=== PATIENT | female | born 2000 | race Caucasian/White ===

== ENCOUNTER 2020-09-18 12:49 | Inpatient (IN) | payer MEDICAID ==
[~2020-09-18] VITALS: Ht 162.6 cm; Wt 72.7 kg
[2020-09-18] MEDS ORDERED: PLEASE ENTER HEIGHT AND WEIGHT MC SCH (21:30)
[2020-09-18] MEDS ORDERED: CALCIUM CARBONATE 500 MG TAB.CHEW PO PRN (21:30)
[2020-09-18] MEDS ORDERED: FENTANYL PF 100 MCG/2ML IV PRN (21:30)
[2020-09-18] MEDS ORDERED: PLEASE ENTER ALLERGIES MC SCH ×2 (21:30)
[2020-09-18] MEDS ORDERED: OXYTOCIN 30U/ 0.9% NaCL 500ML 500 ML IV PRN (21:30)
[2020-09-18] MEDS ORDERED: OXYTOCIN 30U/ 0.9% NaCL 500ML 500 ML IV ONE (21:30)
[2020-09-18] MEDS ORDERED: TERBUTALINE 1 MG/ML, 1ML IVPush PRN (21:30)
[2020-09-18] MEDS ORDERED: TERBUTALINE 1 MG/ML, 1ML SQ PRN (21:30)
[2020-09-18 21:32] LABS: BASOPHILS % (AUTO) 1 % (0-1); EOSINOPHILS % (AUTO) 1 % (1-7); LYMPHOCYTES % (AUTO) 30 % (22-44); MEAN CORPUSCULAR HEMOGLOBIN 31.8 pg (27.0-34.8); MEAN CORPUSCULAR HGB CONC 34.7 g/dL (32.4-35.8); MEAN PLATELET VOLUME 8.2 fL (7.4-10.4); MONOCYTES % (AUTO) 9 % (2-9); NEUTROPHILS % (AUTO) 61 % (42-75); PLATELET COUNT 209 x10^3/uL (130-400); RED BLOOD COUNT 4.21 x10^6/uL (3.82-5.3); RED CELL DISTRIBUTION WIDTH 14.1 % (9.6-15.2)
[2020-09-18] MEDS ORDERED: PREN-59 PO (22:11)
[2020-09-18] MEDS ORDERED: LIDOCAINE 1%, 20ML ONE (22:47)
[2020-09-18] MEDS ORDERED: NEWBORN KIT ONE (22:47)
[2020-09-18] MEDS ORDERED: MISOPROSTOL 200 MCG TABLET ONE (22:48)
[2020-09-19] MEDS: ONDANSETRON 2MG/ML, 2ML IVPush PRN ×2 (01:29→14:42)
[2020-09-19] MEDS: LACTATED RINGERS 1,000 ML IV SCH ×3 (01:30→17:56)
[2020-09-19] MEDS: D5%-LACTATED RINGERS 1,000 ML IV SCH ×2 (08:12→15:55)
[2020-09-19] MEDS: FENTANYL PF 100 MCG/2ML IVPush PRN ×3 (14:43→17:54)
[2020-09-19] MEDS: OXYTOCIN 30U/ 0.9% NaCL 500ML 500 ML IV SCH (20:50)
[2020-09-19] MEDS ORDERED: IBUPROFEN 600 MG TABLET PO PRN (21:00)
[2020-09-19] MEDS ORDERED: MISOPROSTOL 200 MCG TABLET PR PRN (21:00)
[2020-09-19] MEDS ORDERED: DOCUSATE 100 MG CAPSULE PO PRN (21:00)
[2020-09-19] MEDS ORDERED: OXYcodone/APAP 5/325MG TABLET PO PRN ×2 (21:00)
[2020-09-19] MEDS ORDERED: SIMETHICONE 80 MG CHEW TAB PO PRN (21:00)
[2020-09-19] MEDS ORDERED: ACETAMINOPHEN 325 MG TABLET PO PRN (21:00)
[2020-09-19] MEDS ORDERED: METHYLERGONOVINE 0.2 MG/ML IM PRN (21:00)
[2020-09-19] MEDS ORDERED: CALCIUM CARBONATE 500 MG TAB.CHEW PO PRN (21:00)
[2020-09-19 23:15] VITALS: BP 102/64
[2020-09-20 04:30] VITALS: BP 97/56
[2020-09-20 05:17] LABS: BASOPHILS % (AUTO) 0 % (0-1); EOSINOPHILS % (AUTO) 0 % (1-7); LYMPHOCYTES % (AUTO) 10 % (22-44); MEAN CORPUSCULAR HEMOGLOBIN 31.7 pg (27.0-34.8); MEAN CORPUSCULAR HGB CONC 34.3 g/dL (32.4-35.8); MEAN PLATELET VOLUME 8.4 fL (7.4-10.4); MONOCYTES % (AUTO) 7 % (2-9); NEUTROPHILS % (AUTO) 83 % (42-75); PLATELET COUNT 179 x10^3/uL (130-400); RED BLOOD COUNT 3.84 x10^6/uL (3.82-5.3)
[2020-09-20] MEDS: OXYTOCIN 30U/ 0.9% NaCL 500ML 500 ML IV SCH (07:00)
[2020-09-20 08:30] VITALS: BP 94/51
[2020-09-20 13:30] VITALS: BP 110/71
[2020-09-20 19:40] VITALS: BP 106/69
[2020-09-21] MEDS ORDERED: IBUP-1222 PO (06:45)
[2020-09-21] MEDS: PRENATAL VIT/IRON/FA 1 EACH TABLET PO SCH ×2 (07:56→09:00)
[2020-09-21 08:00] VITALS: BP 109/71
== END 2020-09-21 12:11 | disposition home or self-care (01) | DRG 807 ==
LOC: LDIP 21:05 → 2NW 09-19 23:03
PROVIDERS: ADMIT Obstetrics & Gynecology; ATTEND Obstetrics & Gynecology
PROC: 10E0XZZ Delivery of Products of Conception, External Approach (ICD-10-PCS; principal; 2020-09-19)
PROC: 0HQ9XZZ Repair Perineum Skin, External Approach (ICD-10-PCS; 2020-09-19)
DX: O48.0 Post-term pregnancy (principal); Z37.0 Single live birth; O42.92 Full-term premature rupture of membranes, unspecified as to length of time between rupture and onset of labor; O62.2 Other uterine inertia; O70.0 First degree perineal laceration during delivery; O77.0 Labor and delivery complicated by meconium in amniotic fluid; Z80.6 Family history of leukemia; Z80.7 Family history of other malignant neoplasms of lymphoid, hematopoietic and related tissues; Z83.3 Family history of diabetes mellitus; Z3A.41 41 weeks gestation of pregnancy; Z20.822 Contact with and (suspected) exposure to COVID-19
CPT/HCPCS: 36415; 87806; J7121; 85025; 86592; 86850; 86900; 87635; G0378; J2405; J3010; G0475; J2590; J7120